=== PATIENT | male | born 1985 | race Asian ===

== ENCOUNTER 2021-08-04 19:30 | Emergency (ER) | payer SELFPAY ==
[~2021-08-04] VITALS: Ht 175.3 cm; Wt 68.0 kg
[2021-08-04] MEDS ORDERED: IV NS 1000 ML 1,000 ML IV ONE (20:15)
[2021-08-04] MEDS ORDERED: PROCHLORPERAZINE EDISYLATE 10 MG/2 ML VIAL IV ONE (20:15)
[2021-08-04] MEDS ORDERED: IV NORMAL SALINE 1000 ML BAG IV ONE (20:15)
[2021-08-04 20:25] LABS: HEMATOCRIT 42.4 % (36.7-47.1); MEAN CORPUSCULAR HEMOGLOBIN 30.9 uug (23.8-33.4); MEAN CORPUSCULAR VOLUME 90.1 fL (73.0-96.2); PLATELET COUNT (AUTO) 292 K/uL (152-348)
[2021-08-04 20:30] LABS: CREATININE 1.1 mg/dL (0.6-1.3); POTASSIUM 2.9 mmol/L (3.5-5.1)
[2021-08-04 20:41] LABS: BILIRUBIN,DIRECT 0.2 mg/dL (0.0-0.2); TOTAL PROTEIN, SERUM 8.2 g/dL (6.4-8.2)
[2021-08-04] MEDS ORDERED: PROCHLORPERAZINE EDISYLATE 10 MG/2 ML VIAL ONE (21:24)
[2021-08-04] MEDS: POTASSIUM CHLORIDE 50 ML IV SCH ×3 (22:15→23:15)
[2021-08-04] MEDS ORDERED: POTASSIUM CHLORIDE 50 ML ONE (22:35)
[2021-08-04] MEDS ORDERED: POTA-194 PO (23:22)
[2021-08-04] MEDS ORDERED: PROC10TA29 PO (23:22)
[2021-08-05] MEDS: POTASSIUM CHLORIDE 50 ML IV SCH (00:15)
[2021-08-05] MEDS ORDERED: POTASSIUM BICARBONATE/CIT AC 25 MEQ TABLET.EFF PO ONE (01:30)
[2021-08-05] MEDS ORDERED: POTASSIUM BICARBONATE/CIT AC 25 MEQ TABLET.EFF ONE (01:42)
[2021-08-05 01:49] VITALS: BP 135/83
--- NOTE | 2021-08-05 01:49 | NUR ---
Patient discharged to home in stable condition. Written and verbal after care instructions given. Patient verbalizes understanding of instructions. Stressed follow up or return to ER for worsening s/s.
== END 2021-08-05 01:49 | disposition home or self-care (01) ==
LOC: ER 19:37
DX: R11.2 Nausea with vomiting, unspecified (principal); F12.90 Cannabis use, unspecified, uncomplicated; E87.6 Hypokalemia; Z88.0 Allergy status to penicillin
CPT/HCPCS: 80048; 80076; 83690; 85025; 96361; 96374; 96375; 99284; J0780; J3480; 36415; J7030

== ENCOUNTER 2021-08-18 18:11 | Emergency (ER) | payer SELFPAY ==
[~2021-08-18] VITALS: Ht 175.3 cm; Wt 68.0 kg
[~2021-08-18 18:11] MED LIST: POTA-194 PO; PROC10TA29 PO
[2021-08-18] MEDS ORDERED: PROCHLORPERAZINE EDISYLATE 10 MG/2 ML VIAL IV ONE (19:00)
[2021-08-18] MEDS ORDERED: IV NORMAL SALINE 1000 ML BAG IV ONE ×2 (19:00→19:45)
[2021-08-18] MEDS ORDERED: HALOPERIDOL LACTATE 5 MG/1 ML VIAL IM ONE (19:00)
[2021-08-18] MEDS ORDERED: diphenhydrAMINE 50 MG/1 ML VIAL IV ONE (19:00)
--- NOTE | 2021-08-18 19:15 | NUR ---
Recieved report from [facility]. St[facility] and [facility] given, then heplocked. Meds and UA specimen still pending.
[2021-08-18 19:38] LABS: HEMATOCRIT 45.1 % (36.7-47.1); MEAN CORPUSCULAR HEMOGLOBIN 31.1 uug (23.8-33.4); MEAN CORPUSCULAR VOLUME 90.1 fL (73.0-96.2); PLATELET COUNT (AUTO) 325 K/uL (152-348)
[2021-08-18 19:50] LABS: ETHANOL < 3 MG/DL (0-0); MAGNESIUM 2.3 mg/dL (1.8-2.4); PHOSPHOROUS 3.7 mg/dL (2.5-4.9)
[2021-08-18 19:51] LABS: POTASSIUM 2.9 mmol/L (3.5-5.1)
[2021-08-18 19:56] LABS: BILIRUBIN,DIRECT 0.2 mg/dL (0.0-0.2); TOTAL PROTEIN, SERUM 8.8 g/dL (6.4-8.2)
[2021-08-18] MEDS ORDERED: HALOPERIDOL LACTATE 5 MG/1 ML VIAL ONE (19:57)
[2021-08-18] MEDS ORDERED: diphenhydrAMINE 50 MG/1 ML VIAL ONE (19:58)
[2021-08-18] MEDS ORDERED: PROCHLORPERAZINE EDISYLATE 10 MG/2 ML VIAL ONE (19:59)
[2021-08-18] MEDS ORDERED: POTASSIUM CHLORIDE 20 MEQ TAB.PRT.SR PO ONE (20:00)
[2021-08-18] MEDS ORDERED: POTASSIUM CHLORIDE 20 MEQ TAB.PRT.SR ONE (20:18)
--- NOTE | 2021-08-18 20:30 | NUR ---
Second NS bolus hung by chargeback analyst Adrian and currently running wide open.
[2021-08-18] MEDS ORDERED: PROM25TA15 PO (20:55)
--- NOTE | 2021-08-18 21:20 | NUR ---
Second 1L NS bolus complete. Pt tolerated well. Seems much more alert with better color and appearance. No s/sx of distress present.
--- NOTE | 2021-08-18 21:25 | NUR ---
IV in rt forearm DCed and dressed using 4x4 and tape. Pt told to remove dressing after 20 min.
--- NOTE | 2021-08-18 21:30 | NUR ---
Pt DCed home with friend via walking after recieving aftercare instructions. Pt and friend confirmed understanding of discharge instructions. Pt a little pale and complaining of cold, otherwise good temp and appearance. VSS 129/79, 88bpm, 100%, 16rpm. PE WNL, oxygenating and perfusing well. No complaints of pain, discomfort. Pt states feeling better. No s/sx of distress present.
[2021-08-18 21:57] VITALS: BP 121/74
== END 2021-08-18 21:30 | disposition home or self-care (01) ==
LOC: ER 18:12
DX: R11.2 Nausea with vomiting, unspecified (principal); F12.90 Cannabis use, unspecified, uncomplicated; E87.6 Hypokalemia; D72.829 Elevated white blood cell count, unspecified
CPT/HCPCS: 36415; 80048; 80076; 80320; 83690; 83735; 84100; 85025; 96361; 96372; 96374; 96375; 99284; J0780; J1200; J1630; A4663; G0480; J7030

== ENCOUNTER 2021-09-01 15:37 | Emergency (ER) | payer SELFPAY ==
[~2021-09-01] VITALS: Ht 175.3 cm; Wt 68.0 kg
[~2021-09-01 15:37] MED LIST changes: +PROM25TA15 PO
[2021-09-01] MEDS ORDERED: HALOPERIDOL LACTATE 5 MG/1 ML VIAL IV ONE (17:45)
[2021-09-01] MEDS ORDERED: IV NORMAL SALINE 1000 ML BAG IV ONE ×2 (17:45→19:45)
[2021-09-01 17:56] LABS: HEMATOCRIT 46.2 % (36.7-47.1); MEAN CORPUSCULAR HEMOGLOBIN 31.3 uug (23.8-33.4); MEAN CORPUSCULAR VOLUME 89.8 fL (73.0-96.2); PLATELET COUNT (AUTO) 413 K/uL (152-348)
[2021-09-01] MEDS ORDERED: HALOPERIDOL LACTATE 5 MG/1 ML VIAL ONE (17:57)
[2021-09-01 18:00] LABS: CREATININE 1.5 mg/dL (0.6-1.3); POTASSIUM 3.8 mmol/L (3.5-5.1)
[2021-09-01 18:05] LABS: BILIRUBIN,TOTAL 0.7 mg/dL (0.2-1.0); MAGNESIUM 2.1 mg/dL (1.8-2.4)
--- NOTE | 2021-09-01 19:20 | NUR ---
Recieved report from skin pass operator Adrian.
[2021-09-01] MEDS ORDERED: ONDANSETRON 4 MG/2 ML VIAL IV ONE (19:45)
[2021-09-01] MEDS ORDERED: ONDANSETRON 4 MG/2 ML VIAL ONE (19:51)
[2021-09-01] MEDS ORDERED: ONDA4TAB5 PO ×2 (20:36→20:38)
[2021-09-01 20:59] VITALS: BP 128/83
== END 2021-09-01 20:35 | disposition home or self-care (01) ==
LOC: ER 15:37
DX: R11.2 Nausea with vomiting, unspecified (principal); F12.90 Cannabis use, unspecified, uncomplicated; Z88.0 Allergy status to penicillin; D72.829 Elevated white blood cell count, unspecified
CPT/HCPCS: 36415; 80053; 83735; 85025; 96374; 96375; 99284; J1630; J2405; A4663